=== PATIENT | female | born 1955 | race Caucasian/White ===

== ENCOUNTER 2017-10-15 12:32 | Outpatient (CLI) | payer OTHER ==
[2017-10-15 13:11] LABS: eGFR (African) > 60; eGFR (Non-African) > 60
== END 2017-10-15 12:33 ==
LOC: LAB 12:32
PROVIDERS: ATTEND Internal Medicine
DX: E04.2 Nontoxic multinodular goiter (principal); E03.9 Hypothyroidism, unspecified
CPT/HCPCS: 36415; 80053; 84439; 84443; 84481

== ENCOUNTER 2018-04-06 09:01 | Outpatient (CLI) | payer OTHER ==
[2018-04-06 10:47] LABS: eGFR (Non-African) > 60
== END 2018-04-06 09:30 ==
LOC: LAB 09:01
PROVIDERS: ATTEND Internal Medicine
DX: E11.9 Type 2 diabetes mellitus without complications (principal); E03.9 Hypothyroidism, unspecified
CPT/HCPCS: 36415; 80053; 80061; 82043; 83036; 84439; 84481

== ENCOUNTER 2018-09-25 11:09 | Outpatient (CLI) | payer MEDICARE, OTHER ==
[2018-09-25 12:00] LABS: eGFR (Non-African) > 60
== END 2018-09-25 11:11 ==
LOC: LAB 11:09
PROVIDERS: ATTEND Internal Medicine
DX: E03.9 Hypothyroidism, unspecified (principal); E11.9 Type 2 diabetes mellitus without complications
CPT/HCPCS: 36415; 80053; 80061; 82043; 83036; 84439; 84443; 84481

== ENCOUNTER 2018-11-16 09:49 | Outpatient (CLI) | payer MEDICARE, OTHER ==
[2018-11-16 10:24] LABS: eGFR (Non-African) > 60
== END 2018-11-16 09:50 ==
LOC: LAB 09:49
PROVIDERS: ATTEND Internal Medicine
DX: E11.9 Type 2 diabetes mellitus without complications (principal); E03.9 Hypothyroidism, unspecified
CPT/HCPCS: 36415; 80053; 82043; 83036; 84439; 84443; 84481

== ENCOUNTER 2019-04-28 10:11 | Outpatient (CLI) | payer MEDICARE ==
[2019-05-06 12:04] LABS: A1C 6.2 % (<5.7); eGFR (Non-African) > 60
--- NOTE | 2019-05-11 08:19 | CONSULTATION REPORT ---
DATE OF CONSULTATION: 04/28/2019 CHIEF COMPLAINT: Painful right hand. HISTORY OF PRESENT ILLNESS: This 63-year-old white female, prefers to go by Gifty, rather than Mrs. Cartagena, is seen per her request for recommendations regarding right hand difficulties. She says she has had troubles with the hand, longstanding. She reports a number of injuries to the right upper extremity, says these have been treated primarily by an orthopedic sports medicine doctor in [place], [place]. She reports having had a bear claw her right upper arm causing some nerve damage a number of years ago. "It was cut down to the bone," and she says that she got over that, but did have some nerve damage. She also fractured her forearm in 1961 and says that she had surgical treatment of that with plates and screws. She says she then had a surgery from the doctor in [place], [place] to move one of the nerves at the radial aspect of her wrist in an attempt to obtain some improvement in some dysesthesia she had in the dorsum of the thumb and radial aspect of the hand into the long finger. She says that actually did help with the dysesthesia in the radial aspect of the hand overlying the ring finger, but it did not help the pain in her thumb, which is her primary concern today. She says she has had the doctor in [place] inject her thumb at the MP joint region and over what sounds like the first dorsal compartment region. She has well healed scar overlying the radial aspect to the wrist as well, consistent with her history of surgical intervention there. She does not come with any x-rays available for review, and none were obtained, given her underlying history and the extent of her multiple issues with that hand. I do note that she reports allergy to anything with codeine or Morphine, also reports an allergy to Flagyl. She reports currently taking Metformin ER, BULK FOLDER-Thyroid, triamterene/hydrochlorothiazide, glipizide, oxybutynin, vitamins routinely. PAST MEDICAL HISTORY: The patient has had two live births. PAST SURGICAL HISTORY: She does report additional past surgical history to include two sections, two hysterectomies, double surgery on her right arm, she states. She also had Dr. Braun do the right wrist surgery to move the nerve, she reports, in [place]. She also had a cholecystectomy in the past. SOCIAL HISTORY: She does not list previous nicotine or alcohol use or abuse. FAMILY HISTORY: Positive for cancer in maternal grandmother, hypertension in mother and father, heart attack in father, rheumatic fever in father, stroke in maternal grandfather. REVIEW OF SYSTEMS: Positive for gallbladder disease, type 2 diabetes, hypothyroidism and goiter, reports having had thyroid surgery, partial thyroidectomy in the past. The patient does list review systems positive endocrine for hypothyroidism, and she sees an supervisor securities vault at [facility] in the [facility], thinks it is at [place]. PHYSICAL EXAMINATION: Vital signs are recorded, revealing temperature of 97.8, pulse 75, respirations 18, blood pressure 138/84, oxygen saturation 99% on room air. The patient's weight is 114 pounds, height 4 feet 11 inches. She does report catching when her thumb moves very much at times. On exam, she does have dysesthesias and tenderness/hyperesthesia along the dorsum of the thumb and this is not present on the volar surface. She can flex and extend her thumb, has some pain in so doing, intermittently, she does not have triggering appreciated when gripping. She does supinate and pronate well. She has good capillary refill distally, both upper extremities, fingers and thumb. IMPRESSION: 1. Persistent pain right hand/wrist, primarily dysesthesia/hyperesthesias along the dorsum of the right thumb and radial aspect of wrist. She does not appear to have catching at the first dorsal compartment on exam today or localized tenderness in that region specifically versus more diffusely elsewhere. 2. History of fractures at a young age reportedly in distal forearm requiring surgical treatment when she was about [age] years old. 3. History of soft tissue injury with nerve damage secondary to being clawed by a bear in the axillary side of the upper arm with reported nerve damage, unfortunately. 4. Partial response to surgical treatment for reported neurolysis/possible nerve transposition (no records are available or provided today upon evaluation) in [place], [place] in April 2018. PLAN: Options were discusses with the patient. I do not believe that I have anything to offer her from the orthopedic surgical standpoint, but I do think that since she has acknowledged never having seen an orthopedic hand subspecialist, she may benefit from seeing an orthopedic hand subspecialist. Interestingly, she says that she has seen a plastic surgeon who "does hands," he reportedly told her that it is all "in your head." I did counseling department chair the patient that I believe that she does have pain in her wrist and hand and likely has good reasons for it, that it is not at all "in her head." That stated, the fact that she did get some improvement from the surgery a year ago is encouraging. She says she does not want to see the doctor in [place] again, but I did advise her that his input may be of benefit for her. Moreover, she may benefit as well from seeing one of the orthopedic hand subspecialists, and I recommended that she consider seeing Dr. Fink in the [facility] and information regarding that option is made available to her. She also indicates, of her own accord, that she does see an supervisor securities vault at [facility] and asked if she could see a hand subspecialist there and I advised her that would certainly be something she could arrange also. She indicates satisfaction with today's visit, I answered her questions, does acknowledge that she has a complex condition which she understands is not amenable to easy or simple treatment measures and may not be responsive to surgical intervention. I did advise that the other specialist I would suggest she consider seeing, should she decide she does not want to see a hand subspecialist, would be a neurologist. I did advise her that such referrals can be made through her primary care provider as well. Sincerely, Juan Carlos Villalobos MD(Dictated/not signed) /[employer] [id number] /mab MTDD
== END 2019-04-28 10:40 ==
LOC: OUT 10:11
PROVIDERS: ATTEND Orthopaedic Surgery
DX: M25.531 Pain in right wrist (principal); M79.641 Pain in right hand; R20.3 Hyperesthesia
CPT/HCPCS: 36415; 80053; 82043; 83036; 84439; 84443; 84481; 99202; G0463